=== PATIENT | female | born 1955 | race African-American/Black ===

== ENCOUNTER 2017-03-04 21:11 | Inpatient (IN) | payer OTHER ==
--- NOTE | ~2017-03-04 | HP ---
History And Physical [place] [id number] [facility] [place] [address] NAME: SIERRA KANG : 57 STATUS : ADM IN [facility]#: [id number] AGE: 61 ADM/REG DATE : 03/04/17 MR#: [id number] REPORT SERV DATE: 03/05/17 DICTATED BY: ONESIMO ROSARIO DATE: 03/05/17 REPORT STATUS : Draft TRANSCRIBED BY: MODL DATE: 03/05/17 DATE OF ADMISSION: 03/04/2017 CHIEF COMPLAINT: This 61-year-old female presenting with chest tightness, shortness of breath, orthopnea, extremity edema. HISTORY OF PRESENT ILLNESS: The patient's history was obtained through careful interview with the patient, coupled with review of [facility] medical records. The patient states that for the last 10 days, she has had increasing chest tightness, shortness of breath, and a nonproductive cough. She describes her shortness of breath as both a severe dyspnea on exertion with a prominent wheeze as well as severe nighttime orthopnea and paroxysmal nocturnal dyspnea to the point where she has been sleeping in a recliner for several nights. She has noticed increasing lower extremity edema and abdominal bloating and distention. No abdominal pain. No nausea or vomiting. No lightheadedness. She describes a chest discomfort as a tightness across the middle of her chest, constant 8/10 severity. REVIEW OF SYSTEMS: Otherwise, a 14-point review of systems was obtained and was negative. PAST MEDICAL HISTORY: 1. Asthma, has never smoked. 2. Pneumonia, 2012. 3. Chronic kidney disease, stage III, baseline creatinine of 1.5 to 1.7. 4. Hypertension. 5. Diabetes. 6. Hypothyroidism. 7. Chronically elevated troponin between 0.05 and 0.25, negative catheterization of the heart in 2011 and a negative stress PET scan on 01/25/2017. 8. Systolic congestive heart failure. Most recent echocardiogram by Dr. Gunn showed 24% ejection fraction with diastolic dysfunction on 02/02/2017. 9. Obesity with body mass index of 39. PAST SURGICAL HISTORY: Tubal ligation. ALLERGIES: NO KNOWN DRUG ALLERGIES. SOCIAL HISTORY: No tobacco abuse. No drug abuse. Lives with a 26-year-old grandson and a 13-year-old great granddaughter. Has a total of three grandchildren, one child. She still works as a elementary school art teacher. She became a in 2011. History And Physical [address] [place]. [address] NAME: SIERRA KANG : 57 STATUS : ADM IN PAT#: [id number] AGE: 61 ADM/REG DATE : 03/04/17 MR#: [id number] REPORT SERV DATE: 03/05/17 DICTATED BY: ONESIMO ROSARIO DATE: 03/05/17 REPORT STATUS : Draft TRANSCRIBED BY: HARRY DATE: 03/05/17 FAMILY HISTORY: Diabetes in her mother. Father with stroke. Mother and father with asthma. CURRENT MEDICATIONS: Include albuterol inhaler, Norvasc 5 mg p.o. b.i.d., Coreg 3.125 mg p.o. b.i.d., Lasix 40 mg p.o. b.i.d., hydralazine 50 mg p.o. t.i.d., isosorbide mononitrate 30 mg p.o. b.i.d., potassium 20 mEq p.o. b.i.d., and Altace 2.5 mg p.o. b.i.d. PHYSICAL EXAMINATION: VITAL SIGNS: Temperature 97.2, pulse 93, blood pressure 182/112, respiratory rate 19, O2 saturation 94% on room air. GENERAL: A pleasant, cooperative, female, with evidence of distress secondary to cough, shortness of breath, and chest tightness. HEENT: Pupils equal, round, and reactive to light. No conjunctival pallor. No scleral icterus. Nares are patent. Oropharynx is clear of obstruction. Moist mucous membranes. NECK: Trachea midline. No thyromegaly. LYMPH: No cervical lymphadenopathy. No supraclavicular lymphadenopathy. RESPIRATORY: Prominent wheezes are noted throughout examination with a "tight" exam. But patient also has upper respiratory rhonchi and some wet rales at the base of lungs. No dullness to percussion to suggest effusion by my exam. The patient has a labored respiratory effort. CARDIOVASCULAR: Regular rate and rhythm. No murmurs, rubs, or gallops. The patient does have pitting lower extremity edema to the knees symmetrically. ABDOMEN: Distended by exam, but no tympanic resonance on percussion. Uncomfortable throughout, but no guarding, no rebound, nonfocal, no hepatosplenomegaly. DERMATOLOGICAL: Warm and dry extremities, no pallor, no cyanosis. PSYCHIATRIC: Normal affect. Good mood. Alert and oriented x3. LABORATORY DATA: White blood count 7.7, hemoglobin 13, hematocrit 41, platelets 305. Sodium 146, potassium 4.0, chloride 110, bicarb 28, BUN 27, creatinine 1.70, glucose 105, brain natriuretic peptide 546. Troponin 0.11. Albumin 2.9. INR 1.1. STUDIES: 1. Chest x-ray by my own evaluation shows cardiomegaly, left pleural effusion, pulmonary vascular congestion overall, though it appears stable compared to 10/2016. 2. EKG by my own evaluation shows sinus rhythm, left axis deviation, incomplete left bundle-branch block with left ventricular hypertrophy. ASSESSMENT AND PLAN: 1. Asthma exacerbation. Place on IV Solu-Medrol, duo nebulizers, doxycycline. 2. Systolic congestive heart failure exacerbation with ejection fraction 24% measured in 02/02/2017. Place on IV diuretic, continue ELIEL inhibitor and Coreg. 3. Chronically elevated troponin, yet negative catheterization of the heart in 2011 with a negative stress PET scan, 01/25/2017. 4. Chronic kidney disease, stage III. Monitor closely. History And Physical [address] [address] NAME: SIERRA KANG : 57 STATUS : ADM IN [facility]#: [id number] AGE: 61 ADM/REG DATE : 03/04/17 MR#: [id number] REPORT SERV DATE: 03/05/17 DICTATED BY: ONESIMO ROSARIO DATE: 03/05/17 REPORT STATUS : Draft TRANSCRIBED BY: MODCassia DATE: 03/05/17 KPL/HARRY Onesimo Rosario M.D. / [id number] CC: Pj Gunn MD
--- NOTE | ~2017-03-04 | DS ---
Discharge Summary [facility] [address] [place]. [address] NAME: SIERRA KANG : 57 STATUS : DIS IN PAT#: [id number] AGE: 61 ADM/REG DATE : 03/04/17 MR#: [id number] REPORT SERV DATE: 03/06/17 DICTATED BY: ESTIVEN LEAVITT DATE: 03/05/17 REPORT STATUS : Draft TRANSCRIBED BY: MODL DATE: 03/05/17 ADMISSION DATE: 03/04/2017 DISCHARGE DATE: 03/05/2017 DISCHARGE DIAGNOSES: 1. Asthma exacerbation. 2. Systolic congestive heart failure exacerbation, baseline ejection fraction of 25% measured in 01/2017. 3. Chronically elevated troponin. 4. Stage 3 chronic kidney disease. CONSULTS: None. PROCEDURES: None. HOSPITAL COURSE: This is a 61-year-old lady who was admitted with asthma exacerbation and congestive heart failure exacerbation. For details, please refer to excellent H and P by Dr. Henderson. In summary, by the morning when I saw the patient, the patient had made significant improvement of her symptoms. The patient was on room air not requiring any oxygen. The patient actually felt back at baseline and she was amenable to discharge. I felt that was appropriate given her clinical presentation. The patient is thus being discharged home with a short course of steroids. Of note, the patient complained of dry, hacking cough and upon review of patient's home medications patient was on an ELIEL inhibitor. The ELIEL inhibitor was thus discontinued and the patient was started on a low-dose losartan instead. The patient is now being discharged home with close outpatient followup instructions. DISPOSITION: Home. FOLLOWUP: 1. Please follow up with PCP in the next one to two weeks. 2. Please follow up with sweat band separator in the next one to two weeks. Total of 25 minutes spent in coordinating this patient's discharge today. DONNY/HARRY Estiven Leavitt MD / [id number] CC: Estiven Leavitt MD
[~2017-03-04 21:11] MED LIST: ADVAIR INH; ALBUTEROL5 INH; ALTA2.5 PO; ASA5GR PO; CARDURA1 MG; CARDURA1 MG PO; COREG25 PO; COREG6 PO; DEMA20 PO; FLAG500TAB PO; FLONASE NAS; GLUCPH PO; HYDRALAZINE100 MG; HYDRALAZINE100 MG PO; IMDUR30 PO; ISOSORBIDE; KDUR20 PO; KLOR-CON M2020 MEQ PO; L20 PO; L40 PO; LEVOTHYROXIN25 MCG PO; MAGOX4 PO; MICRO-K10 MEQ PO; NORV10 PO; NORV5; NORV5 PO; P10 PO; POTASSIUM; PREDNISONE; PRILO PO; PRIN10 PO; PROVENTSOL INH; PROVHFA INH; SPIRIVA INH; STERAPRED DS10 MG; T300 PO; UNABLE TO RECALL; VENTOLIN HFA INH; VIBRATAB100 MG PO; ZITH250 PO
[2017-03-04 22:13] LABS: BASOPHILS 0.5 %; BASOPHILS ABSOLUTE 0.04 10/3/uL (0.0-0.16); EOSINOPHILS 10.2 %; EOSINOPHILS ABSOLUTE 0.79 10/3/uL (0.0-0.53); ER CBC TAT 0 Hrs 10 Mins; HEMATOCRIT 40.9 % (36.0-48.0); HEMOGLOBIN 12.9 g/dL (12.0-16.0); IMMATURE GRANULOCYTES 0.3 %; IMMATURE GRANULOCYTES ABSOLUTE 0.02 10/3/uL (0.0-0.11); LYMPHOCYTES 28.7 %; LYMPHOCYTES ABSOLUTE 2.22 10/3/uL (0.67-4.30); MANUAL DIFF NO %; MEAN CORPUS HGB CONC 31.5 g/dL (32.0-36.0); MEAN CORPUSCULAR HEMOGLOB 26.7 pg (26.0-34.0); MEAN CORPUSCULAR VOLUME 84.7 fL (80-100); MEAN PLATELET VOLUME 9.5 fL (9.2-13.0); MONOCYTES 8.3 %; MONOCYTES ABSOLUTE 0.64 10/3/uL (0.21-1.20); NEUTROPHILS ABSOLUTE 4.02 10/3/uL (2.02-8.40); PLATELET COUNT 305 10/3/uL (150-400); RED CELL COUNT 4.83 10/6/uL (4.0-5.6); WHITE BLOOD CELLS 7.7 10/3/uL (4.5-10.5)
[2017-03-04 22:21] LABS: INTERNATIONAL NORMAL RATI 1.1 UNITS (-); PROTIME (NOT ORD) 13.6 SEC (12.0-14.5)
[2017-03-04 22:28] LABS: A/G RATIO 0.8 (0.7-1.9); ALBUMIN 2.9 G/DL (3.5-5.0); ALKALINE PHOSPHATASE 77 U/L (45-117); CALCIUM, SERUM 8.7 MG/DL (8.5-10.4); CHLORIDE, SERUM 110 MMOL/L (96-112); CO2 (CARBON DIOXIDE) 28 MMOL/L (24-34); GFR AFRICAN AMERICAN 37 ML/MIN (>=60); GFR NON AFRICAN AMERICAN 32 ML/MIN (>=60); GLOBULIN 3.7 G/DL (2.5-4.1); SGOT(AST) 11 U/L (5-40); SGPT(ALT) 20 U/L (5-65); SODIUM, SERUM 146 MMOL/L (135-148); TOTAL BILIRUBIN 0.6 MG/DL (0-1.2); TOTAL PROTEIN 6.6 G/DL (6.0-8.5)
[2017-03-04 22:29] LABS: BUN (BLOOD UREA NITROGEN) 27 MG/DL (6-23); GLUCOSE, SERUM 105 MG/DL (60-99); TROPONIN I 0.11 NG/ML (<0.05)
[2017-03-04] MEDS ORDERED: KDUR20 PO (23:13)
[2017-03-04] MEDS ORDERED: IMDUR30 PO (23:13)
[2017-03-04] MEDS ORDERED: L40 PO (23:14)
[2017-03-04] MEDS ORDERED: APRES50 PO (23:15)
[2017-03-04] MEDS ORDERED: ALTA2.5 PO (23:15)
[2017-03-04] MEDS ORDERED: ALBUTEROL0.083 % INH (23:16)
[2017-03-04] MEDS ORDERED: NORV5 PO (23:16)
[2017-03-04] MEDS ORDERED: COREG3 PO (23:16)
[2017-03-04] MEDS ORDERED: VENTOLIN HFA INH (23:17)
[2017-03-05 03:40] LABS: ASCORBIC ACID (UR NOT ORDER) NEG (NEG); BILIRUBIN, URINE NEGATIVE (NEG); KETONE, URINE NEGATIVE (NEG); LEUKOCYTE ESTERASE(NOT OR NEG (NEG); WBC (NOT ORDERED) (RFLEX) < 1 (0-5)
[2017-03-05 05:01] LABS: BASOPHILS 0.2 %; BASOPHILS ABSOLUTE 0.01 10/3/uL (0.0-0.16); EOSINOPHILS 0.3 %; EOSINOPHILS ABSOLUTE 0.02 10/3/uL (0.0-0.53); HEMATOCRIT 42.2 % (36.0-48.0); HEMOGLOBIN 13.5 g/dL (12.0-16.0); IMMATURE GRANULOCYTES 0.5 %; IMMATURE GRANULOCYTES ABSOLUTE 0.03 10/3/uL (0.0-0.11); LYMPHOCYTES 8.7 %; MEAN CORPUSCULAR HEMOGLOB 26.8 pg (26.0-34.0); MEAN CORPUSCULAR VOLUME 83.9 fL (80-100); MEAN PLATELET VOLUME 10.1 fL (9.2-13.0); MONOCYTES 0.9 %; MONOCYTES ABSOLUTE 0.05 10/3/uL (0.21-1.20); NEUTROPHILS 89.4 %; NEUTROPHILS ABSOLUTE 5.11 10/3/uL (2.02-8.40); PLATELET COUNT 320 10/3/uL (150-400); RBC DISTRIBUTION WIDTH 16.8 % (12.0-16.0); RED CELL COUNT 5.03 10/6/uL (4.0-5.6); WHITE BLOOD CELLS 5.7 10/3/uL (4.5-10.5)
[2017-03-05 05:02] LABS: MANUAL DIFF NO %
[2017-03-05 05:07] LABS: INTERNATIONAL NORMAL RATI 1.1 UNITS (-); PROTIME (NOT ORD) 14.5 SEC (12.0-14.5)
[2017-03-05 05:28] LABS: A/G RATIO 0.9 (0.7-1.9); ALKALINE PHOSPHATASE 76 U/L (45-117); BUN (BLOOD UREA NITROGEN) 26 MG/DL (6-23); CALCIUM, SERUM 8.9 MG/DL (8.5-10.4); CHLORIDE, SERUM 108 MMOL/L (96-112); CO2 (CARBON DIOXIDE) 27 MMOL/L (24-34); GFR AFRICAN AMERICAN 37 ML/MIN (>=60); GFR NON AFRICAN AMERICAN 32 ML/MIN (>=60); GLOBULIN 3.5 G/DL (2.5-4.1); POTASSIUM, SERUM 3.8 MMOL/L (3.5-5.3); SGOT(AST) 14 U/L (5-40); SGPT(ALT) 17 U/L (5-65); SODIUM, SERUM 145 MMOL/L (135-148); TOTAL BILIRUBIN 0.3 MG/DL (0-1.2); TOTAL PROTEIN 6.5 G/DL (6.0-8.5)
[2017-03-05 05:33] LABS: GLUCOSE, SERUM 201 MG/DL (60-99); TROPONIN I 0.11 NG/ML (<0.05); ULTRASENSITIVE TSH 0.469 MCIU/ML (0.358-3.740)
[2017-03-05] MEDS ORDERED: COZ25 PO (10:12)
[2017-03-05] MEDS ORDERED: P20 PO (10:13)
[2017-03-05] MEDS ORDERED: ZITHROMAX500 MG PO (10:13)
[2017-03-05] MEDS ORDERED: MUCINEX600 MG PO (10:14)
[2017-03-05] MEDS ORDERED: TESS PO (10:16)
== END 2017-03-05 14:41 | disposition home or self-care (01) | DRG 291 ==
LOC: ER 21:11 → 6NO 23:16
PROVIDERS: Emergency Medicine; Hospitalist; Internal Medicine
DX: I13.0 Hypertensive heart and chronic kidney disease with heart failure and stage 1 through stage 4 chronic kidney disease, or unspecified chronic kidney disease (principal); I50.23 Acute on chronic systolic (congestive) heart failure; E11.22 Type 2 diabetes mellitus with diabetic chronic kidney disease; N18.3 Chronic kidney disease, stage 3 (moderate); J45.901 Unspecified asthma with (acute) exacerbation; E66.01 Morbid (severe) obesity due to excess calories; I44.7 Left bundle-branch block, unspecified; Z87.01 Personal history of pneumonia (recurrent); E03.9 Hypothyroidism, unspecified; Z83.3 Family history of diabetes mellitus; Z82.3 Family history of stroke; Z68.39 Body mass index [BMI] 39.0-39.9, adult
CPT/HCPCS: 71010; 80053; 81001; 82962; 83735; 83880; 84443; 84484; 85025; 85610; 85730; 87449; 93005; 94640; 96374; 96375; 99285; A9270-GY; J0360; J1940; J2920; J2930

== ENCOUNTER 2017-03-17 23:40 | Inpatient (IN) | payer OTHER ==
--- NOTE | ~2017-03-17 | HP ---
History And Physical [address] [place]. [address] NAME: SIERRA KANG : 57 STATUS : ADM IN [facility]#: [id number] AGE: 61 ADM/REG DATE : 03/18/17 MR#: [id number] REPORT SERV DATE: 03/18/17 DICTATED BY: ONESIMO ROSARIO DATE: 03/18/17 REPORT STATUS : Draft TRANSCRIBED BY: MODL DATE: 03/18/17 DATE OF ADMISSION: 03/18/2017 CHIEF COMPLAINT: A 61-year-old female presenting with shortness of breath. HISTORY OF PRESENT ILLNESS: The patient's history was obtained through an interview with the patient, coupled with review of [facility] medical records. The patient states that for about two days she has been having increasing shortness of breath characterized by dyspnea on exertion, but also a prominent orthopnea and paroxysmal nocturnal dyspnea. On the night prior to admission, she could not sleep at all. She describes a prominent wheeze, nonproductive cough, increasing lower extremity edema. She has intermittent lightheadedness. No confusion. She describes chest discomfort in the middle of her chest, a tightness quality, 6/10 severity exacerbated by coughing and breathing. No nausea or vomiting. No fevers or chills. REVIEW OF SYSTEMS: Otherwise, a 14-point review of systems was obtained and was negative. PAST MEDICAL HISTORY: 1. Systolic congestive heart failure. Ejection fraction 24% in 2017, followed by Dr. Gunn. 2. Asthma, never smoked. 3. Diabetes. 4. Chronic kidney disease, stage 3. Baseline creatinine of 1.5 to 1.7. 5. Pneumonia in 2011. 6. Hypothyroidism. 7. Hypertension. 8. Chronically elevated troponin measured between 0.05 and 0.25, negative catheterization of the heart in 2011, and negative stress test in January 2017. 9. Body mass index 39. PAST SURGICAL HISTORY: Tubal ligation. ALLERGIES: NO KNOWN DRUG ALLERGIES. SOCIAL HISTORY: Lives with a 26-year-old grandson and 13-year-old great granddaughter. Has been a since 2011. Has three grandchildren and one child. Still works as a school counsellor. No tobacco abuse. No alcohol abuse. FAMILY HISTORY: Father with stroke. Mother with diabetes. Mother and father both with History And Physical [address] [place]. [address] NAME: SIERRA KANG : 57 STATUS : ADM IN [facility]#: [id number] AGE: 61 ADM/REG DATE : 03/18/17 MR#: [id number] REPORT SERV DATE: 03/18/17 DICTATED BY: ONESIMO ROSARIO DATE: 03/18/17 REPORT STATUS : Draft TRANSCRIBED BY: MODCassia DATE: 03/18/17 asthma. Strong family history of heart disease. CURRENT MEDICATIONS: 1. Norvasc 5 mg p.o. b.i.d. 2. Tessalon Perles. 3. Coreg 3.125 mg p.o. b.i.d. 4. Vitamin D. 5. Dextromethorphan. 6. Lasix 40 mg p.o. b.i.d. 7. Hydralazine 50 mg p.o. q.8 hours. 8. Isosorbide mononitrate 30 mg p.o. daily. 9. Cozaar 25 mg p.o. daily. 10.Potassium 20 mEq p.o. b.i.d. PHYSICAL EXAMINATION: VITAL SIGNS: Temperature 98.6, pulse 100, blood pressure 161/94, respiratory rate 24, and O2 saturation 91% on room air. GENERAL: An ill-appearing female, in evidence of distress from shortness of breath. HEENT: Pupils equal, round, and reactive to light. No conjunctival pallor. No scleral icterus. Nares are patent. Oropharynx is clear of obstruction. Moist mucous membranes. NECK: Trachea midline. No thyromegaly. LYMPH: No cervical lymphadenopathy. No supraclavicular lymphadenopathy. RESPIRATORY: The patient has wet rales at the base of lungs that predominate, also some diminished breath sounds at the right base of lung, what I believe is some focal egophony in that area. The patient has scattered expiratory wheezes, upper respiratory rhonchi. No labored respiratory effort. CARDIOVASCULAR: Tachycardic. Regular rhythm. No murmurs, rubs, or gallops. The patient does have pitting lower extremity edema symmetrically. ABDOMEN: Soft, nontender, and nondistended. Normal bowel sounds auscultated throughout. No hepatosplenomegaly. DERMATOLOGICAL: Warm and dry extremities. No pallor. No cyanosis. PSYCHIATRIC: Normal affect. Good mood. Alert and oriented x3. LABORATORY DATA: Brain natriuretic peptide 675. Troponin 0.14. Liver enzymes within normal limits. White blood cell count 11, hemoglobin 13, hematocrit 41, and platelets 231. Sodium 143, potassium 4.0, chloride 111, bicarb 26, BUN 19, creatinine 1.55, and glucose 116. ABG demonstrates pH 7.40, PaCO2 of 38, a PaO2 of 96, and a bicarb of 23. STUDIES: 1. Chest x-ray per my own evaluation shows pulmonary edema, cardiomegaly, possible History And Physical [address] [address] NAME: SIERRA KANG : 57 STATUS : ADM IN [facility]#: [id number] AGE: 61 ADM/REG DATE : 03/18/17 MR#: [id number] REPORT SERV DATE: 03/18/17 DICTATED BY: ONESIMO ROSARIO DATE: 03/18/17 REPORT STATUS : Draft TRANSCRIBED BY: HARRY DATE: 03/18/17 increased right lower lung disease consistent with infiltrate? 2. EKG by my own evaluation shows sinus rhythm, premature ventricular contractions, right axis deviation. ASSESSMENT AND PLAN: 1. Asthma exacerbation. Never been a smoker. Place on IV Solu-Medrol, Duo nebulizers, IV antibiotics. 2. Systolic congestive heart failure exacerbation. Ejection fraction 24% in January 2017. Place on IV diuretic, ELILE inhibitor, and beta matty. 3. Possible pneumonia. Start empiric IV antibiotics. Check procalcitonin. 4. Chronic kidney disease, stage 3. 5. Chronically elevated troponin. Negative catheterization of the heart in 2011. Negative stress test in January 2017. KPL/MODL Onesimo Rosario M.D. / [id number] CC: Karely Yoo MD
--- NOTE | ~2017-03-17 | DS ---
Discharge Summary [facility] [address] [place]. [address] NAME: SIERRA KANG : 57 STATUS : DIS IN PAT#: [id number] AGE: 61 ADM/REG DATE : 03/18/17 MR#: [id number] REPORT SERV DATE: 03/20/17 DICTATED BY: DELPHINE SALAZAR DATE: 03/19/17 REPORT STATUS : Draft TRANSCRIBED BY: MODL DATE: 03/19/17 ADMISSION DATE: 03/18/2017 DISCHARGE DATE: 03/19/2017 DISCHARGE DIAGNOSES: 1. Acute on chronic heart failure. 2. Asthma exacerbation. 3. Chronic kidney disease, stable. 4. Body mass index of 34.5. HISTORY OF PRESENT ILLNESS: This is a 61-year-old female patient, who does have a condition of heart failure and asthma came to the hospital with short of breath. Please see dictated H and P. HOSPITAL COURSE: She was admitted to the hospital for both condition, heart failure and asthma exacerbation, was treated for both conditions, significantly improved within 24 hours. Symptoms are very stabilized. The patient has been treated with increased diuretics which is Lasix 40 mg every 8 hours IV here. Her home dose is 40 mg twice a day and she states that she is compliant with her medical treatment. She had a good about 2.5 L of output within 24 hours. She remains in stable condition. Did not require any home oxygen. The patient will be discharged to home with continuing home treatment. We are going to finish tapering the prednisone and her Coreg was increased and adding her Singulair and loratadine treatment. DISCHARGE MEDICATIONS: 1. Norvasc 5 mg twice a day. 2. Tessalon as needed. 3. Coreg is increased to 6.25 mg twice a day. 4. Doxycycline 100 mg twice a day for five more days. 5. Lasix 40 mg twice a day. 6. Imdur 30 mg once a day. 7. Cozaar 25 mg once a day. 8. Potassium 20 mEq twice a day. 9. Apresoline 50 mg every 8 hours. 10.Prednisone tapering dose. 11.Singulair 10 mg once a day. 12.Loratadine 10 mg once a day. DISPOSITION: The patient is discharged to home in stable condition. TIME SPENT: More than 30 minutes on patient education. EKL/MODL Discharge Summary [address] [place]. [address] NAME: SIERRA KANG : 57 STATUS : DIS IN PAT#: [id number] AGE: 61 ADM/REG DATE : 03/18/17 MR#: [id number] REPORT SERV DATE: 03/20/17 DICTATED BY: DELPHINE SALAZAR DATE: 03/19/17 REPORT STATUS : Draft TRANSCRIBED BY: HARRY DATE: 03/19/17 Delphine Salazar M.D. / [id number] CC: Delphine Salazar M.D.
[~2017-03-17 23:40] MED LIST changes: +ALBUTEROL0.083 % INH; +APRES50 PO; +COREG3 PO; +COZ25 PO; +MUCINEX600 MG PO; +P20 PO; +TESS PO; +ZITHROMAX500 MG PO
[2017-03-17 23:46] LABS: BASOPHILS 0.2 %; BASOPHILS ABSOLUTE 0.02 10/3/uL (0.0-0.16); EOSINOPHILS 5.1 %; EOSINOPHILS ABSOLUTE 0.56 10/3/uL (0.0-0.53); HEMOGLOBIN 12.9 g/dL (12.0-16.0); IMMATURE GRANULOCYTES 0.4 %; IMMATURE GRANULOCYTES ABSOLUTE 0.04 10/3/uL (0.0-0.11); LYMPHOCYTES 11.3 %; LYMPHOCYTES ABSOLUTE 1.24 10/3/uL (0.67-4.30); MEAN CORPUS HGB CONC 31.5 g/dL (32.0-36.0); MEAN CORPUSCULAR HEMOGLOB 26.6 pg (26.0-34.0); MEAN CORPUSCULAR VOLUME 84.5 fL (80-100); MEAN PLATELET VOLUME 9.7 fL (9.2-13.0); MONOCYTES 7.5 %; MONOCYTES ABSOLUTE 0.82 10/3/uL (0.21-1.20); NEUTROPHILS 75.5 %; NEUTROPHILS ABSOLUTE 8.31 10/3/uL (2.02-8.40); PLATELET COUNT 231 10/3/uL (150-400); RBC DISTRIBUTION WIDTH 17.8 % (12.0-16.0); RED CELL COUNT 4.85 10/6/uL (4.0-5.6)
[2017-03-17 23:49] LABS: ER CBC TAT 0 Hrs 14 Mins; MANUAL DIFF NO %
[2017-03-18 00:02] LABS: A/G RATIO 0.9 (0.7-1.9); ALKALINE PHOSPHATASE 74 U/L (45-117); CALCIUM, SERUM 8.5 MG/DL (8.5-10.4); CHLORIDE, SERUM 111 MMOL/L (96-112); CO2 (CARBON DIOXIDE) 26 MMOL/L (24-34); CREATININE 1.55 MG/DL (0.55-1.02); GFR AFRICAN AMERICAN 42 ML/MIN (>=60); GFR NON AFRICAN AMERICAN 36 ML/MIN (>=60); GLOBULIN 3.3 G/DL (2.5-4.1); SGOT(AST) 24 U/L (5-40); SGPT(ALT) 64 U/L (5-65); SODIUM, SERUM 143 MMOL/L (135-148); TOTAL BILIRUBIN 0.7 MG/DL (0-1.2); TOTAL PROTEIN 6.3 G/DL (6.0-8.5)
[2017-03-18 00:03] LABS: BUN (BLOOD UREA NITROGEN) 19 MG/DL (6-23); GLUCOSE, SERUM 116 MG/DL (60-99)
[2017-03-18 04:08] LABS: ALLENS TEST Pos; BE (BASE EXCESS) -0.7 MEQ/L (0 +/- 2.5); CARBOXYHEMOGLOBIN 1.5 % (0-3); DEVICE NC; HCO3 (ACTUAL BICARBONATE) 23.5 MEQ/L (23-27); HEMOBLOGIN CONTENT 13.6 G/DL (12-16); INSTRUMENT SERIAL # 8087; METHEMOGLOBIN 0.4 % (0-3); O2 CONTENT 18.4 VOL% (18-24); OPERATOR ID 33449; PCO2 (CO2 TENSION) 38 MMHG (35-45); PO2 (O2 TENSION) 96 MMHG (79-93); SAMPLE Arterial; pH 7.41 (7.37-7.43)
[2017-03-18 04:17] LABS: TROPONIN I 0.14 NG/ML (<0.05)
[2017-03-18] MEDS ORDERED: IMDUR30 PO ×2 (05:48→05:58)
[2017-03-18] MEDS ORDERED: NORV5 (05:48)
[2017-03-18] MEDS ORDERED: COREG3 PO (05:49)
[2017-03-18] MEDS ORDERED: L40 PO ×2 (05:50→06:00)
[2017-03-18] MEDS ORDERED: KDUR20 PO (05:50)
[2017-03-18] MEDS ORDERED: COZ25 PO ×2 (05:51→05:58)
[2017-03-18] MEDS ORDERED: APRES50 PO ×2 (05:51→06:00)
[2017-03-18] MEDS ORDERED: VITAMIN D31000 UNIT PO ×2 (05:52→05:57)
[2017-03-18] MEDS ORDERED: TESS PO ×2 (05:53→05:57)
[2017-03-18] MEDS ORDERED: MUCUSRELIEF PO (05:53)
[2017-03-18] MEDS ORDERED: Z-PAK PO ×2 (05:54→05:56)
[2017-03-18] MEDS ORDERED: MUCUSRELIEF (05:57)
[2017-03-18] MEDS ORDERED: NORV5 PO (05:59)
[2017-03-18] MEDS ORDERED: KLOR-CON M2020 MEQ PO (05:59)
[2017-03-18] MEDS ORDERED: COREG6 PO (05:59)
[2017-03-18 10:44] LABS: BASOPHILS 0.2 %; BASOPHILS ABSOLUTE 0.02 10/3/uL (0.0-0.16); EOSINOPHILS 6.3 %; HEMATOCRIT 41.3 % (36.0-48.0); HEMOGLOBIN 13.1 g/dL (12.0-16.0); IMMATURE GRANULOCYTES 0.4 %; IMMATURE GRANULOCYTES ABSOLUTE 0.04 10/3/uL (0.0-0.11); LYMPHOCYTES 19.8 %; LYMPHOCYTES ABSOLUTE 1.88 10/3/uL (0.67-4.30); MANUAL DIFF NO %; MEAN CORPUS HGB CONC 31.7 g/dL (32.0-36.0); MEAN PLATELET VOLUME 9.7 fL (9.2-13.0); MONOCYTES 9.4 %; MONOCYTES ABSOLUTE 0.89 10/3/uL (0.21-1.20); NEUTROPHILS 63.9 %; NEUTROPHILS ABSOLUTE 6.06 10/3/uL (2.02-8.40); PLATELET COUNT 218 10/3/uL (150-400); RBC DISTRIBUTION WIDTH 17.8 % (12.0-16.0); RED CELL COUNT 4.86 10/6/uL (4.0-5.6); WHITE BLOOD CELLS 9.5 10/3/uL (4.5-10.5)
[2017-03-18 10:55] LABS: PARTIAL THROMBO TIME 31.3 SEC (22.5-37.2)
[2017-03-18 10:57] LABS: INTERNATIONAL NORMAL RATI 1.2 UNITS (-); PROTIME (NOT ORD) 15.1 SEC (12.0-14.5)
[2017-03-18 11:11] LABS: A/G RATIO 0.9 (0.7-1.9); ALBUMIN 2.8 G/DL (3.5-5.0); ALKALINE PHOSPHATASE 66 U/L (45-117); BUN (BLOOD UREA NITROGEN) 16 MG/DL (6-23); CALCIUM, SERUM 8.7 MG/DL (8.5-10.4); CHLORIDE, SERUM 110 MMOL/L (96-112); CO2 (CARBON DIOXIDE) 28 MMOL/L (24-34); CREATININE 1.52 MG/DL (0.55-1.02); GFR AFRICAN AMERICAN 43 ML/MIN (>=60); GFR NON AFRICAN AMERICAN 37 ML/MIN (>=60); GLOBULIN 3.2 G/DL (2.5-4.1); GLUCOSE, SERUM 144 MG/DL (60-99); POTASSIUM, SERUM 3.6 MMOL/L (3.5-5.3); SGOT(AST) 17 U/L (5-40); SGPT(ALT) 53 U/L (5-65); SODIUM, SERUM 147 MMOL/L (135-148); TOTAL BILIRUBIN 0.5 MG/DL (0-1.2); TROPONIN I 0.12 NG/ML (<0.05); ULTRASENSITIVE TSH 0.634 MCIU/ML (0.358-3.740)
[2017-03-18 13:45] LABS: PROCALCITONIN <0.05 ng/mL (<0.5)
[2017-03-19 05:22] LABS: BUN (BLOOD UREA NITROGEN) 25 MG/DL (6-23); CALCIUM, SERUM 8.9 MG/DL (8.5-10.4); CHLORIDE, SERUM 109 MMOL/L (96-112); CO2 (CARBON DIOXIDE) 28 MMOL/L (24-34); CREATININE 1.51 MG/DL (0.55-1.02); GFR AFRICAN AMERICAN 43 ML/MIN (>=60); GFR NON AFRICAN AMERICAN 37 ML/MIN (>=60); GLUCOSE, SERUM 121 MG/DL (60-99); POTASSIUM, SERUM 4.1 MMOL/L (3.5-5.3); SODIUM, SERUM 143 MMOL/L (135-148)
[2017-03-19] MEDS ORDERED: STERAPRED DS10 MG PO (14:32)
[2017-03-19] MEDS ORDERED: SINGULAIR1 PO (14:33)
[2017-03-19] MEDS ORDERED: MONODOX100 MG PO (14:33)
[2017-03-19] MEDS ORDERED: CLARIT10 PO (14:34)
== END 2017-03-19 15:55 | disposition home or self-care (01) | DRG 291 ==
LOC: ER 23:40 → 5NO 03-18 05:57
PROVIDERS: Emergency Medicine; Hospitalist; Internal Medicine; Specialist
DX: I13.0 Hypertensive heart and chronic kidney disease with heart failure and stage 1 through stage 4 chronic kidney disease, or unspecified chronic kidney disease (principal); I50.23 Acute on chronic systolic (congestive) heart failure; N18.3 Chronic kidney disease, stage 3 (moderate); J45.901 Unspecified asthma with (acute) exacerbation; E66.9 Obesity, unspecified; Z68.20 Body mass index [BMI] 20.0-20.9, adult
CPT/HCPCS: 36600; 71010; 71020; 80048; 80053; 82805; 83735; 83880; 84145; 84443; 84484; 85025; 85610; 85730; 87040; 93005; 94640; 99285; A9270-GY; J0456; J2920

== ENCOUNTER 2017-03-26 01:37 | Inpatient (IN) | payer OTHER ==
--- NOTE | ~2017-03-26 | DS ---
Discharge Summary [facility] [address] [place]. [address] NAME: SIERRA KANG : 57 STATUS : DIS IN PAT#: [id number] AGE: 61 ADM/REG DATE : 03/26/17 MR#: [id number] REPORT SERV DATE: 03/31/17 DICTATED BY: BONG COVINGTON DATE: 03/30/17 REPORT STATUS : Draft TRANSCRIBED BY: MODL DATE: 03/30/17 ADMISSION DATE: 03/26/2017 DISCHARGE DATE: 03/30/2017 CONDITION ON DISCHARGE: Stable. DISPOSITION: Discharged to home with Home Health. ADVICE ON DISCHARGE: For the patient to follow up with all three of her regular doctors that she sees on a regular basis. 1. Director Of Kids, Dr. Cantu within the next one to two weeks. 2. Follow up with Dr. De Leon, her crimping machine operator for metal within the next two weeks, and also follow up with her air sampler, Dr. Alvarenga, within the next two to three weeks. DIAGNOSES ON DISCHARGE: 1. Acute hypoxic respiratory failure secondary to multi factors. a. Acute exacerbation of chronic obstructive pulmonary disease that has resolved. b. Acute exacerbation of systolic and diastolic heart failure that has resolved. 2. Her chronic issues at this time include chronic systolic and diastolic heart failure secondary to cardiomyopathy with an ejection fraction of 20% to 25%. 3. Chronic obstructive pulmonary disease. 4. Chronic kidney disease, stage 3, for which she follows up with crimping machine operator for metal. BRIEF HOSPITAL COURSE: Ms. aKng is a 61-year-old female who was admitted with signs and symptoms as described in history and physical exam. At this time, she was admitted on 03/26/2017 with acute hypoxic respiratory failure. She was admitted for supportive treatment and also started on antibiotics, diuresis, and was supported with supplemental oxygen. After supportive and symptomatic care, she has significantly improved. The patient's COPD is actually from chronic asthma. The patient has had asthma for years that has led to her COPD, I understand. Strangely, the patient is not on any inhaled corticosteroids at this time. The patient's elevated troponin level that was found to be slightly elevated upon admission was probably from demand-related ischemia per Cardiology and this came down nicely. The patient also has hypertension and diabetes mellitus, which is non-insulin dependent type 2 for which she does not take any medications at this time. Without any medications, her hemoglobin A1c has always been fairly normally controlled and it always been around 6.3, 6.4 at range. The patient states that she usually controls her diet. DISCHARGE MEDICATIONS: After being treated and after her acute exacerbations have resolved, the patient is being sent home and she is being sent home on the following new medications: 1. Prednisone taper. The patient will be taking 30 mg once a day for four days, 20 mg once a day for four days, 10 mg once a day for four days, 5 mg once a day for four Discharge Summary [facility] [address] [place]. [address] NAME: SIERRA KANG : 57 STATUS : DIS IN PAT#: [id number] AGE: 61 ADM/REG DATE : 03/26/17 MR#: [id number] REPORT SERV DATE: 03/31/17 DICTATED BY: BONG COVINGTON DATE: 03/30/17 REPORT STATUS : Draft TRANSCRIBED BY: HARRY DATE: 03/30/17 days, and stop. The patient will also be receiving two more doses of levofloxacin 750 mg p.o. every other day for two more doses only to finish her treatment for the antibiotics for the acute exacerbation of COPD. 2. Regarding her additional inhalers, the patient will also be on Spiriva, which I have given a prescription to her and also inhaled corticosteroids QVAR 80 mcg two puffs twice a day. 3. She will continue the following home medications and these will include amlodipine 5 mg twice a day, Coreg 6.25 mg p.o. twice a day, vitamin D3 supplements, Imdur 30 mg once a day, Claritin 10 mg once a day, Singulair 10 mg once a day, hydralazine 50 mg p.o. three times a day for hypertension and heart failure, and then the patient will also be taking her Lasix 40 mg p.o. b.i.d. The patient will also continue potassium 20 mEq once a day instead of twice a day. The patient will stop her losartan right now given her kidney function test. It is up to Dr. De Leon to resume this when she follows up with him in the next few weeks. The patient will continue her albuterol or Ventolin as prescribed previously. Hence, the patient is being sent home in stable condition and I have the following most relevant and recent labs on this patient. First of all, her CBC on the day of discharge shows a completely normal CBC. Electrolyte profile shows normal electrolytes, BUN is 14, creatinine is 1.7 which is probably her baseline at this time. Brain natriuretic peptide is 242.9, again probably which is her baseline. 4. Her chest x-ray on the day of discharge shows left lung base opacity consistent with atelectasis and/or infiltrate. At this time, I do think that it is more of an atelectasis because the patient does not seem to be toxic or really show any signs of infection at this time even though I am going to finish up her course of antibiotics that she has already been started on. The most recent ABGs that I have on this patient are also on 03/30/2017 and this shows a pH of 7.4, pCO2 of 46, pO2 of 78, O2 sats of 94.8% on room air. Hence, the patient is being sent home in stable condition with above advice to follow up with her above specialists, and I have spent about 40 minutes in coordinating discharge care of this patient including [id number] encounter and summarizing this discharge. To be noted specifically, the patient has not had any echocardiogram during this admission. Her last echocardiogram was on 02/02/2017 and this echocardiogram showed that the patient's ejection fraction from 01/2017 was 24% as mentioned above. I submit this as my discharge summary and I have spent about 40 minutes in coordinating care of this patient today. KELSIE/HARRY Bong Covington M.D. / [id number] Discharge Summary [address] [address] NAME: SIERRA KANG : 57 STATUS : DIS IN PAT#: [id number] AGE: 61 ADM/REG DATE : 03/26/17 MR#: [id number] REPORT SERV DATE: 03/31/17 DICTATED BY: BONG COVINGTON DATE: 05/12/17 REPORT STATUS : Draft TRANSCRIBED BY: MODL DATE: 03/30/17 CC: Bong Covington M.D.
--- NOTE | ~2017-03-26 | HP ---
History And Physical [id number] [place]. [address] NAME: SIERRA KANG : 57 STATUS : ADM IN [facility]#: [id number] AGE: 61 ADM/REG DATE : 03/26/17 MR#: [id number] REPORT SERV DATE: 03/26/17 DICTATED BY: JOHN GONZALEZ DATE: 03/26/17 REPORT STATUS : Draft TRANSCRIBED BY: MODL DATE: 03/26/17 DATE OF ADMISSION: 03/26/2017 POINT OF ENTRY: [facility] Emergency Department. PRIMARY CARE PHYSICIAN: None at this time. PRIMARY SOLUTION SPEC: Dr. Alvarenga. PRIMARY EDUCATION REP: Dr. Gunn. CHIEF COMPLAINT: Shortness of breath, cough, and wheezing. HISTORY OF PRESENT ILLNESS: Ms. Kang is a 61-year-old female with a history of asthma as well as chronic systolic congestive heart failure, ejection fraction of 25%, who presents to the emergency department today with a three-day history of progressive worsening shortness of breath, cough, sputum production as well as wheezing. The patient was admitted to the Hospitalist Service with similar complaints from 03/18/2017 through 03/19/2017. She was treated with IV Lasix, steroids, and inhaled bronchodilators and significantly improved. The patient states that at time of discharge, she was feeling well until about Sunday afternoon when she started to develop worsening shortness of breath with associated wheezing, cough, and occasional sputum production. The patient denies any fevers, night sweats, chills, chest pain, or palpitations. Does states she had some greenish colored sputum today. Initial evaluation in the emergency department notable for an ABG that appears to be well compensated on 2 L by nasal cannula. Chest x-ray is without evidence of pneumonia. EKG is nonischemic. Remainder of her labs were otherwise unremarkable. She was given IV steroids and multiple bronchodilator treatments and still is very short of breath and wheezing. She was admitted to the Hospitalist Service. Of note, troponin level was 0.13 and BNP was 796.5. She was given 1 mg of IV Bumex for this. REVIEW OF SYSTEMS: Comprehensive review of systems otherwise negative, unless listed in history of present illness. PREVIOUS MEDICAL HISTORY: 1. Chronic systolic congestive heart failure, ejection fraction of 25%. 2. Asthma, not on home oxygen. 3. Chronic kidney disease stage 3, baseline creatinine 1.5-1.7. 4. Hypertension. 5. Reports of hyperthyroidism, but not on medications. 6. Bre-hpoprbr-bfletjkts diabetes mellitus type 2. 7. Morbid obesity. 8. Chronic troponin elevation. History And Physical [address] [place]. [address] NAME: SIERRA KANG : 57 STATUS : ADM IN [facility]#: [id number] AGE: 61 ADM/REG DATE : 03/26/17 MR#: [id number] REPORT SERV DATE: 03/26/17 DICTATED BY: JOHN GONZALEZ DATE: 03/26/17 REPORT STATUS : Draft TRANSCRIBED BY: HARRY DATE: 03/26/17 SURGICAL HISTORY: Tubal ligation. ALLERGIES: NO KNOWN DRUG ALLERGIES. HOME MEDICATIONS: This list needs to be confirmed by pharmacy in the mornin. Norvasc 5 mg b.i.d. 2. Tessalon Perles 100 mg t.i.d. 3. Carvedilol 6.25 mg b.i.d. 4. Vitamin D 2000 units daily. 5. Dextromethorphan with guaifenesin. 6. Doxycycline 100 mg b.i.d. 7. Lasix 40 mg b.i.d. 8. Hydralazine 50 mg q.8 hours. 9. Imdur 30 mg daily. 10.Claritin 10 mg daily. 11.Losartan 25 mg daily. 12.Singulair 10 mg daily. 13.Potassium chloride 20 mEq b.i.d. 14.Prednisone Dosepak. SOCIAL HISTORY: She denies any tobacco, alcohol, or illicits. She is a lifelong nonsmoker. Denies any secondhand smoke. FAMILY MEDICAL HISTORY: Mother and father both with coronary artery disease, hypertension, and diabetes. Siblings with coronary artery disease and hypertension. LABORATORIES AND IMAGIN. White count is 9.1, hemoglobin is 14.7, hematocrit is 46.9, and platelet count is 261. INR 1.1. 2. Sodium is 147, potassium 4.2, chloride 111, carbon dioxide 28, BUN 27, creatinine 1.53, glucose is 109, calcium is 8.7, magnesium is 2.2. 3. Troponin is 0.13. 4. BNP is 796.5. 5. ABG; pH is 7.33, pCO2 is 41, pO2 is 77, bicarbonate is 21, saturating 94% on 2 L by nasal cannula. 6. Chest x-ray per my review shows cardiomegaly as well as some mild intravascular volume overload, but no evidence of any acute consolidation, infiltrate, or effusion. 7. EKG per my review shows normal sinus rhythm with no evidence of any acute ischemic infarction, does have some LVH type changes. PHYSICAL EXAMINATION: VITAL SIGNS: Temperature is afebrile, pulse of 98, respirations 18, saturating 95% on 2 L of nasal cannula, and blood pressure is 125/94. GENERAL: The patient is awake, alert, in no acute distress, resting comfortably. She is a well-developed and well-nourished -[place] female. HEENT: Atraumatic and normocephalic. Moist mucous membranes. Pupils equal, round, reactive History And Physical [address] [address] NAME: SIERRA KANG : 57 STATUS : ADM IN [facility]#: [id number] AGE: 61 ADM/REG DATE : 03/26/17 MR#: [id number] REPORT SERV DATE: 03/26/17 DICTATED BY: JOHN GONZALEZ DATE: 03/26/17 REPORT STATUS : Draft TRANSCRIBED BY: HARRY DATE: 03/26/17 to light and accommodation. Extraocular movements intact. No scleral icterus. NECK: No jugular venous distention. No carotid bruits. CARDIAC: Regular rate and rhythm. No murmurs or gallops. Normal S1 and S2. LUNGS: She is on oxygen, is visibly tachypneic and can hear wheezing without use of stethoscope on auscultation. She has diffuse inspiratory wheezes in all lung morin. Decreased breath sounds at bases. Prolonged respiratory phase, but fair to moderate air movement at this time. ABDOMEN: Soft, nontender, nondistended. Good bowel sounds. No rebound, guarding, or rigidity. EXTREMITIES: Warm and well perfused. No cyanosis, clubbing, or edema. SKIN: Warm and dry. PSYCH: Affect appropriate. NEURO: Alert and oriented x3. Cranial nerves II through XII grossly intact. Speech is normal. Gait not assessed. ASSESSMENT: Ms. Kang is a 61-year-old female, back to our facility with shortness of breath, cough, and sputum production and found to have an acute asthma exacerbation as well as systolic congestive heart failure exacerbation. PROBLEM LIST: 1. Acute asthma exacerbation. 2. Jtssi-pv-uusndjh systolic congestive heart failure exacerbation. 3. Hypoxemia. 4. Elevated troponin level. 5. Chronic kidney disease stage 3. 6. Hypertension. 7. Uqt-yzcoyfj-pgssnloui diabetes mellitus type 2. PLAN: 1. Acute asthma exacerbation. The patient has received IV steroids as well as at least two breathing treatments and still is fairly wheezy and somewhat tight. We will treat her initially with IV magnesium sulfate. Continue IV steroids, inhaled bronchodilators as well as inhaled cortical steroids. Given reports of purulent-appearing sputum production, we will also place her on Levaquin. Checking b.i.d. peak flows. 2. Kzxpp-eh-fhfbtlm systolic congestive heart failure exacerbation. She has received 1 mg IV Bumex here in the emergency department with good diuresis. We will place her on fluid and sodium restriction. 3. Elevated troponin level. The patient has history of chronically elevated troponin level. She denies any chest pain. EKG is nonischemic. We will continue to trend out cardiac enzymes. 4. CKD 3. The patient is currently within her recent baseline. 5. Zdy-wsbrieb-ipoqghwxp diabetes mellitus type 2. Place her on level 2 insulin sliding scale given the use of IV steroids. 6. Hypertension. Continue the patient's home medications. 7. DVT prophylaxis. Lovenox subcutaneously. CODE STATUS: The patient wished to be full code. History And Physical [address] [address] NAME: SIERRA KANG : 57 STATUS : ADM IN PAT#: [id number] AGE: 61 ADM/REG DATE : 03/26/17 MR#: [id number] REPORT SERV DATE: 03/26/17 DICTATED BY: JOHN GONZALEZ DATE: 03/26/17 REPORT STATUS : Draft TRANSCRIBED BY: HARRY DATE: 03/26/17 NIKOLAY/HARRY John Gonzalez MD / [id number] CC: Karely Villarreal DO Vimal Ramjee, MD
--- NOTE | ~2017-03-26 | CN ---
Consultation Report [facility] [address] [place]. [address] NAME: SIERRA KANG : 57 STATUS : ADM IN PAT#: [id number] AGE: 61 ADM/REG DATE : 03/26/17 MR#: [id number] REPORT SERV DATE: 03/28/17 DICTATED BY: GUILLE MELENDEZ DATE: 03/28/17 REPORT STATUS : Draft TRANSCRIBED BY: MODL DATE: 03/28/17 CONSULT DATE OF CONSULTATION: Thank you for the opportunity to consult on this patient. HISTORY OF PRESENT ILLNESS: Ms. Kang is an unfortunate 61-year-old woman with a very long history of asthma but no personal history of smoking with frequent exacerbations complicated by congestive heart failure. She is followed by Dr. Alvarenga in our office. She had been in her usual state of health up until this past Sunday when she started having difficulty breathing, orthopnea, and it got worse at night. She was seen in the emergency department and admitted. She was felt to be having an acute exacerbation of her asthma but also of her CHF and indeed had a high BNP on arrival. She has been diuresed over the past couple of days and has felt significantly better since arrival. She has had no persistent purulence of sputum, fevers, chills, or night sweats. REVIEW OF SYSTEMS: Her review of 10 systems was performed and is positive for what was noted above. SOCIAL HISTORY: Remarkable for no personal smoking history and no secondhand smoke exposure. PAST MEDICAL HISTORY: As noted above is significant for asthma which is at least moderate persistent with persistent symptoms and persistent obstruction. She also has congestive heart failure with systolic cardiac dysfunction followed by Cardiology. PHYSICAL EXAMINATION: GENERAL: Today, she is awake and alert. HEENT: Normocephalic and atraumatic. NECK: Supple. No lymphadenopathy. No JVD. CHEST: Symmetric with good expansion bilaterally. LUNGS: Mostly clear though they have a prolonged expiratory phase and she has occasional intermittent expiratory wheezes. CARDIOVASCULAR: She has S1 and S2 which are regular in rate and rhythm. ABDOMEN: Benign. EXTREMITIES: She has no edema. No clubbing. No cyanosis. ASSESSMENT AND PLAN: Respiratory failure. The patient has acute on chronic hypoxemic respiratory failure because of acute exacerbation of CHF and acute exacerbation of asthma. She is already on good therapy for her asthma with systemic steroids, antibiotics, and bronchodilators. She does have a phenotype of allergic asthma with a high baseline IgE, so we have started her on Singulair for the time being but we will discuss with Dr. Alvarenga upon followup of the possibility of initiation of anti-IgE therapy or anti-eosinophil therapy. We would recommend continuing with therapy and consider follow up with Cardiology as well since CHF appears to have been a significant trigger of her acute decompensation. Please do Consultation Report [address] [place]. [address] NAME: SIERRA KANG : 57 STATUS : ADM IN PAT#: [id number] AGE: 61 ADM/REG DATE : 03/26/17 MR#: [id number] REPORT SERV DATE: 03/28/17 DICTATED BY: GUILLE MELENDEZ DATE: 03/28/17 REPORT STATUS : Draft TRANSCRIBED BY: HARRY DATE: 03/28/17 not hesitate to contact me if I could be of any further assistance. SETH/HARRY Guille Melendez M.D. / [id number] CC: Lena Lou M.D.
--- NOTE | ~2017-03-26 | CN ---
Consultation Report [facility] [address] [place]. [address] NAME: SIERRA KANG : 57 STATUS : ADM IN [facility]#: [id number] AGE: 61 ADM/REG DATE : 03/26/17 MR#: [id number] REPORT SERV DATE: 03/28/17 DICTATED BY: MAX GARCIA DATE: 03/28/17 REPORT STATUS : Draft TRANSCRIBED BY: MODL DATE: 03/28/17 NEPHROLOGY CONSULT DATE OF CONSULTATION: 03/28/2017 REQUESTING PHYSICIAN: Lena Lou M.D. REASON FOR CONSULT: CKD with acute kidney injury. HISTORY OF PRESENT ILLNESS: Ms. Kang is a very pleasant, 61-year-old female, who has been seen by Dr. De Leon of [facility] one time in the office in February 2017. At that time, her creatinine was 1.7. Urine protein creatinine was 0.225. Ultrasound in September 2012 showed no hydronephrosis or renal artery stenosis. She has been hospitalized recently at [facility], March 04 to she was here with dyspnea and cough at which time her ELIEL inhibitor was converted to an ARB. She was readmitted on March 18 to March 19 with another episode of dyspnea. During that hospitalization, Nephrology was not consulted. Creatinine was 1.5. She was readmitted on March 26 with another episode of dyspnea. Chest x-ray showed no active infiltrates. Her BNP was 797. She has been diuresed with IV Bumex and today her BNP is 52, but creatinine is up to 1.9. She has no edema on exam. She has been seen by Pulmonary earlier today and was started on Singulair. She does have a history of nonischemic cardiomyopathy with an EF of 25%. PAST MEDICAL HISTORY: 1. CKD. Baseline creatinine 1.[address] De Leon, [facility]. 2. Hypertension on ARB. 3. NIDDM. 4. Asthma. 5. Nonischemic cardiomyopathy. EF 25% with cardiac cath 2011. 6. Hypothyroidism. MEDICATIONS: 1. Amlodipine 5 mg b.i.d. 2. Tessalon. 3. Bumex 1 mg IV q.8 hours. 4. Coreg 6.25 mg b.i.d. 5. Vitamin D. 6. Robitussin. 7. Subcu heparin. 8. Hydralazine 50 mg t.i.d. 9. Imdur 30 mg daily. 10.Claritin. Consultation Report [id number] [place]. [address] NAME: SIERRA KANG : 57 STATUS : ADM IN PAT#: [id number] AGE: 61 ADM/REG DATE : 03/26/17 MR#: [id number] REPORT SERV DATE: 03/28/17 DICTATED BY: MAX GARCIA DATE: 03/28/17 REPORT STATUS : Draft TRANSCRIBED BY: HARRY DATE: 03/28/17 11.Cozaar 25 mg daily. 12.Singulair 10 mg daily. 13.Potassium 20 mEq b.i.d. 14.Prednisone 40 mg daily. 15.Spiriva inhaler. 16.Levaquin 750 mg q.48 hours. FAMILY HISTORY: No ESRD. Both parents had chronic kidney disease. SOCIAL HISTORY: Lifelong nonsmoker. No secondhand smoke. . 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 REVIEW OF SYSTEMS: Please see HPI. No OTC NSAIDs. Collier catheter in place. PHYSICAL EXAMINATION: VITAL SIGNS: Temperature 96.4, pulse 76, respirations 18, blood pressure 121/76, and 99% saturation on 2 liters per nasal cannula O2. GENERAL: She is a very pleasant, female. Awake, alert, oriented, cooperative with the exam. NEUROLOGIC: Grossly nonfocal. She is in no distress, sitting up in her hospital bed. NEUROLOGIC: Grossly nonfocal. HEENT: Sclerae without icterus. Conjunctivae not injected. Oropharynx is clear. Mucous membranes are dry. NECK: No JVD. LUNGS: She has diffuse audible expiratory wheezing. No dyspnea or tachypnea with conversation. HEART: Regular rate and rhythm. No rub. ABDOMEN: Obese, soft, nontender, nondistended. Bowel sounds present throughout without rebound or guarding. EXTREMITIES: Showed no edema. SKIN: Shows no rash. MUSCULOSKELETAL: Shows no active tenosynovitis or gout. : Deferred. She has clear yellow urine in the Collier catheter. LABORATORY DATA: Sodium 146, potassium 4.1, bicarb 35, BUN 44, creatinine 1.9. GFR 33 mL/minute. Calcium 8.8, magnesium 2.4, phosphorus 4, albumin 2.7. White count 56926, hemoglobin 14, and platelets 265,000. BNP 52. UA with trace blood, no protein. ABG 7.37/51/108 on 28% FiO2. ASSESSMENT AND PLAN: Ms. Kang has chronic kidney disease. Baseline creatinine 1.4 to 1.7, now with mild acute kidney injury. EF 25%. Nonischemic cardiomyopathy. Leukocytosis. COPD hypoalbuminemia and microalbuminuria. Likely she has acute kidney injury related to overdiuresis. She has no volume overload on Consultation Report [address] [place]. [address] NAME: SIERRA KANG : 57 STATUS : ADM IN [facility]#: [id number] AGE: 61 ADM/REG DATE : 03/26/17 MR#: [id number] REPORT SERV DATE: 03/28/17 DICTATED BY: MAX GARCIA DATE: 03/28/17 REPORT STATUS : Draft TRANSCRIBED BY: HARRY DATE: 03/28/17 exam. BNP has normalized. Chest x-ray shows no active process. I suspect her symptoms are more likely pulmonary in nature rather than related to volume overload? Hold ARB and diuretics. Continue hydralazine and nitrates for afterload reduction. Supportive care. Watch labs. We will follow closely with you. Follow up with primary retail store manager after discharge. TANA/HARRY Max Garcia M.D. / [id number] CC: Lena Lou M.D.
[2017-03-26 01:18] LABS: BE (BASE EXCESS) -4.4 MEQ/L (0 +/- 2.5); CARBOXYHEMOGLOBIN 1.4 % (0-3); DEVICE NC; HCO3 (ACTUAL BICARBONATE) 21.2 MEQ/L (23-27); HEMOBLOGIN CONTENT 14.2 G/DL (12-16); INSTRUMENT SERIAL # 8087; METHEMOGLOBIN 0.3 % (0-3); O2 CONTENT 18.6 VOL% (18-24); PCO2 (CO2 TENSION) 41 MMHG (35-45); PO2 (O2 TENSION) 77 MMHG (79-93); SAMPLE Arterial; pH 7.33 (7.37-7.43)
[~2017-03-26 01:37] MED LIST changes: +CLARIT10 PO; +MONODOX100 MG PO; +MUCUSRELIEF; +MUCUSRELIEF PO; +SINGULAIR1 PO; +STERAPRED DS10 MG PO; +VITAMIN D31000 UNIT PO; +Z-PAK PO
[2017-03-26 01:51] LABS: BASOPHILS 0.2 %; BASOPHILS ABSOLUTE 0.02 10/3/uL (0.0-0.16); EOSINOPHILS 4.5 %; EOSINOPHILS ABSOLUTE 0.41 10/3/uL (0.0-0.53); ER CBC TAT 0 Hrs 07 Mins; HEMOGLOBIN 14.7 g/dL (12.0-16.0); IMMATURE GRANULOCYTES 0.3 %; IMMATURE GRANULOCYTES ABSOLUTE 0.03 10/3/uL (0.0-0.11); LYMPHOCYTES 11.6 %; LYMPHOCYTES ABSOLUTE 1.05 10/3/uL (0.67-4.30); MEAN CORPUS HGB CONC 31.3 g/dL (32.0-36.0); MEAN CORPUSCULAR VOLUME 86.2 fL (80-100); MEAN PLATELET VOLUME 9.8 fL (9.2-13.0); MONOCYTES 13.7 %; MONOCYTES ABSOLUTE 1.24 10/3/uL (0.21-1.20); NEUTROPHILS 69.7 %; NEUTROPHILS ABSOLUTE 6.33 10/3/uL (2.02-8.40); PLATELET COUNT 261 10/3/uL (150-400); RBC DISTRIBUTION WIDTH 17.7 % (12.0-16.0); RED CELL COUNT 5.44 10/6/uL (4.0-5.6); WHITE BLOOD CELLS 9.1 10/3/uL (4.5-10.5)
[2017-03-26 01:52] LABS: HEMATOCRIT 46.9 % (36.0-48.0); MANUAL DIFF NO %
[2017-03-26 01:58] LABS: INTERNATIONAL NORMAL RATI 1.1 UNITS (-); PARTIAL THROMBO TIME 28.1 SEC (22.5-37.2); PROTIME (NOT ORD) 14.3 SEC (12.0-14.5)
[2017-03-26 02:06] LABS: BUN (BLOOD UREA NITROGEN) 27 MG/DL (6-23); CALCIUM, SERUM 8.7 MG/DL (8.5-10.4); CHLORIDE, SERUM 111 MMOL/L (96-112); CO2 (CARBON DIOXIDE) 28 MMOL/L (24-34); CREATININE 1.53 MG/DL (0.55-1.02); GFR AFRICAN AMERICAN 42 ML/MIN (>=60); GFR NON AFRICAN AMERICAN 37 ML/MIN (>=60); GLUCOSE, SERUM 109 MG/DL (60-99); POTASSIUM, SERUM 4.2 MMOL/L (3.5-5.3); SODIUM, SERUM 147 MMOL/L (135-148)
[2017-03-26 02:07] LABS: CHEST PAIN PROFILE TAT 0 Hrs 23 Mins; TROPONIN I 0.13 NG/ML (<0.05)
[2017-03-26 09:14] LABS: CPK 50 U/L (0-200)
[2017-03-26 09:15] LABS: TROPONIN I 0.09 NG/ML (<0.05)
[2017-03-26] MEDS ORDERED: ALBUTEROL0.083 % INH (11:35)
[2017-03-26] MEDS ORDERED: VENTOLIN HFA INH (11:35)
[2017-03-26 14:59] LABS: CPK 60 U/L (0-200)
[2017-03-26 15:00] LABS: CK-MB 1.9 NG/ML; TROPONIN I 0.07 NG/ML (<0.05)
[2017-03-26 20:28] LABS: PROCALCITONIN 0.12 ng/mL (<0.5)
[2017-03-27 06:18] LABS: BASOPHILS 0.1 %; BASOPHILS ABSOLUTE 0.01 10/3/uL (0.0-0.16); EOSINOPHILS 0 %; HEMATOCRIT 42.4 % (36.0-48.0); HEMOGLOBIN 13.6 g/dL (12.0-16.0); IMMATURE GRANULOCYTES 0.2 %; IMMATURE GRANULOCYTES ABSOLUTE 0.02 10/3/uL (0.0-0.11); LYMPHOCYTES 6.6 %; LYMPHOCYTES ABSOLUTE 0.62 10/3/uL (0.67-4.30); MEAN CORPUS HGB CONC 32.1 g/dL (32.0-36.0); MEAN CORPUSCULAR HEMOGLOB 27.3 pg (26.0-34.0); MEAN PLATELET VOLUME 9.9 fL (9.2-13.0); MONOCYTES 3.4 %; MONOCYTES ABSOLUTE 0.32 10/3/uL (0.21-1.20); NEUTROPHILS 89.7 %; NEUTROPHILS ABSOLUTE 8.38 10/3/uL (2.02-8.40); PLATELET COUNT 273 10/3/uL (150-400); RBC DISTRIBUTION WIDTH 17.8 % (12.0-16.0); RED CELL COUNT 4.99 10/6/uL (4.0-5.6); WHITE BLOOD CELLS 9.4 10/3/uL (4.5-10.5)
[2017-03-27 06:24] LABS: MANUAL DIFF NO %
[2017-03-27 06:30] LABS: ALBUMIN 2.7 G/DL (3.5-5.0); CALCIUM, SERUM 9.2 MG/DL (8.5-10.4); CHLORIDE, SERUM 108 MMOL/L (96-112); CO2 (CARBON DIOXIDE) 29 MMOL/L (24-34); CREATININE 1.53 MG/DL (0.55-1.02); GFR AFRICAN AMERICAN 42 ML/MIN (>=60); GFR NON AFRICAN AMERICAN 37 ML/MIN (>=60); POTASSIUM, SERUM 4.1 MMOL/L (3.5-5.3); SODIUM, SERUM 146 MMOL/L (135-148)
[2017-03-27 06:31] LABS: BUN (BLOOD UREA NITROGEN) 32 MG/DL (6-23); GLUCOSE, SERUM 148 MG/DL (60-99)
[2017-03-27 07:49] LABS: WBC (NOT ORDERED) (RFLEX) 0 (0-5)
[2017-03-27 08:54] LABS: ASCORBIC ACID (UR NOT ORDER) NEG (NEG); BILIRUBIN, URINE NEGATIVE (NEG); KETONE, URINE NEGATIVE (NEG); LEUKOCYTE ESTERASE(NOT OR NEG (NEG)
[2017-03-28 04:53] LABS: ALLENS TEST Pos; BE (BASE EXCESS) 2.5 MEQ/L (0 +/- 2.5); CARBOXYHEMOGLOBIN 0.7 % (0-3); HCO3 (ACTUAL BICARBONATE) 28.9 MEQ/L (23-27); HEMOBLOGIN CONTENT 14.2 G/DL (12-16); INSTRUMENT SERIAL # 8083; METHEMOGLOBIN 0.4 % (0-3); O2 CONTENT 19.5 VOL% (18-24); OPERATOR ID 35785; PCO2 (CO2 TENSION) 51 MMHG (35-45); PO2 (O2 TENSION) 108 MMHG (79-93); SAMPLE Arterial; pH 7.37 (7.37-7.43)
[2017-03-28 06:20] LABS: BASOPHILS 0.1 %; BASOPHILS ABSOLUTE 0.01 10/3/uL (0.0-0.16); EOSINOPHILS 0.7 %; EOSINOPHILS ABSOLUTE 0.08 10/3/uL (0.0-0.53); HEMATOCRIT 44.6 % (36.0-48.0); IMMATURE GRANULOCYTES 0.3 %; IMMATURE GRANULOCYTES ABSOLUTE 0.03 10/3/uL (0.0-0.11); LYMPHOCYTES 18.8 %; LYMPHOCYTES ABSOLUTE 2.21 10/3/uL (0.67-4.30); MEAN CORPUS HGB CONC 31.4 g/dL (32.0-36.0); MEAN CORPUSCULAR VOLUME 85.9 fL (80-100); MEAN PLATELET VOLUME 9.6 fL (9.2-13.0); MONOCYTES 6.6 %; MONOCYTES ABSOLUTE 0.77 10/3/uL (0.21-1.20); NEUTROPHILS 73.5 %; NEUTROPHILS ABSOLUTE 8.64 10/3/uL (2.02-8.40); PLATELET COUNT 265 10/3/uL (150-400); RED CELL COUNT 5.19 10/6/uL (4.0-5.6); WHITE BLOOD CELLS 11.7 10/3/uL (4.5-10.5)
[2017-03-28 06:21] LABS: MANUAL DIFF NO %
[2017-03-28 06:33] LABS: CALCIUM, SERUM 8.8 MG/DL (8.5-10.4); CHLORIDE, SERUM 108 MMOL/L (96-112); CREATININE 1.87 MG/DL (0.55-1.02); GFR AFRICAN AMERICAN 33 ML/MIN (>=60); GFR NON AFRICAN AMERICAN 29 ML/MIN (>=60); GLUCOSE, SERUM 124 MG/DL (60-99); POTASSIUM, SERUM 4.1 MMOL/L (3.5-5.3); SODIUM, SERUM 146 MMOL/L (135-148)
[2017-03-28 06:36] LABS: BUN (BLOOD UREA NITROGEN) 44 MG/DL (6-23); CO2 (CARBON DIOXIDE) 35 MMOL/L (24-34)
[2017-03-29 05:52] LABS: BASOPHILS 0.1 %; BASOPHILS ABSOLUTE 0.01 10/3/uL (0.0-0.16); EOSINOPHILS 0.1 %; EOSINOPHILS ABSOLUTE 0.01 10/3/uL (0.0-0.53); HEMATOCRIT 44.5 % (36.0-48.0); HEMOGLOBIN 14.2 g/dL (12.0-16.0); IMMATURE GRANULOCYTES 0.1 %; IMMATURE GRANULOCYTES ABSOLUTE 0.01 10/3/uL (0.0-0.11); LYMPHOCYTES 20.6 %; LYMPHOCYTES ABSOLUTE 1.69 10/3/uL (0.67-4.30); MEAN CORPUS HGB CONC 31.9 g/dL (32.0-36.0); MEAN CORPUSCULAR HEMOGLOB 27.3 pg (26.0-34.0); MEAN CORPUSCULAR VOLUME 85.6 fL (80-100); MEAN PLATELET VOLUME 9.8 fL (9.2-13.0); MONOCYTES 6.7 %; MONOCYTES ABSOLUTE 0.55 10/3/uL (0.21-1.20); NEUTROPHILS 72.4 %; NEUTROPHILS ABSOLUTE 5.95 10/3/uL (2.02-8.40); PLATELET COUNT 287 10/3/uL (150-400); WHITE BLOOD CELLS 8.2 10/3/uL (4.5-10.5)
[2017-03-29 06:02] LABS: BUN (BLOOD UREA NITROGEN) 44 MG/DL (6-23); CALCIUM, SERUM 9.3 MG/DL (8.5-10.4); CHLORIDE, SERUM 107 MMOL/L (96-112); CREATININE 1.84 MG/DL (0.55-1.02); GFR AFRICAN AMERICAN 34 ML/MIN (>=60); GFR NON AFRICAN AMERICAN 29 ML/MIN (>=60); MANUAL DIFF NO %; POTASSIUM, SERUM 4.6 MMOL/L (3.5-5.3); SODIUM, SERUM 145 MMOL/L (135-148)
[2017-03-29 06:10] LABS: CO2 (CARBON DIOXIDE) 29 MMOL/L (24-34); GLUCOSE, SERUM 89 MG/DL (60-99)
[2017-03-30 04:49] LABS: BE (BASE EXCESS) 4.5 MEQ/L (0 +/- 2.5); CARBOXYHEMOGLOBIN 0.9 % (0-3); HCO3 (ACTUAL BICARBONATE) 29.7 MEQ/L (23-27); HEMOBLOGIN CONTENT 14.9 G/DL (12-16); INSTRUMENT SERIAL # 8083; METHEMOGLOBIN 0.4 % (0-3); O2 CONTENT 19.6 VOL% (18-24); OPERATOR ID 33449; PCO2 (CO2 TENSION) 46 MMHG (35-45); PO2 (O2 TENSION) 78 MMHG (79-93); SAMPLE Arterial; pH 7.43 (7.37-7.43)
[2017-03-30 04:50] LABS: ALLENS TEST Pos
[2017-03-30 05:29] LABS: BASOPHILS 0.1 %; BASOPHILS ABSOLUTE 0.01 10/3/uL (0.0-0.16); EOSINOPHILS 0.1 %; EOSINOPHILS ABSOLUTE 0.01 10/3/uL (0.0-0.53); HEMATOCRIT 43.5 % (36.0-48.0); IMMATURE GRANULOCYTES 0.4 %; IMMATURE GRANULOCYTES ABSOLUTE 0.03 10/3/uL (0.0-0.11); LYMPHOCYTES 20.1 %; LYMPHOCYTES ABSOLUTE 1.46 10/3/uL (0.67-4.30); MEAN CORPUS HGB CONC 32.2 g/dL (32.0-36.0); MEAN CORPUSCULAR HEMOGLOB 26.9 pg (26.0-34.0); MEAN CORPUSCULAR VOLUME 83.5 fL (80-100); MEAN PLATELET VOLUME 9.5 fL (9.2-13.0); MONOCYTES 4.8 %; MONOCYTES ABSOLUTE 0.35 10/3/uL (0.21-1.20); NEUTROPHILS 74.5 %; NEUTROPHILS ABSOLUTE 5.42 10/3/uL (2.02-8.40); PLATELET COUNT 290 10/3/uL (150-400); RBC DISTRIBUTION WIDTH 17.8 % (12.0-16.0); RED CELL COUNT 5.21 10/6/uL (4.0-5.6); WHITE BLOOD CELLS 7.3 10/3/uL (4.5-10.5)
[2017-03-30 05:35] LABS: MANUAL DIFF NO %
[2017-03-30 05:43] LABS: BUN (BLOOD UREA NITROGEN) 41 MG/DL (6-23); CALCIUM, SERUM 8.9 MG/DL (8.5-10.4); CHLORIDE, SERUM 106 MMOL/L (96-112); CO2 (CARBON DIOXIDE) 32 MMOL/L (24-34); CREATININE 1.71 MG/DL (0.55-1.02); GFR AFRICAN AMERICAN 37 ML/MIN (>=60); GFR NON AFRICAN AMERICAN 32 ML/MIN (>=60); GLUCOSE, SERUM 97 MG/DL (60-99); POTASSIUM, SERUM 4.9 MMOL/L (3.5-5.3); SODIUM, SERUM 142 MMOL/L (135-148)
[2017-03-30] MEDS ORDERED: P20 (12:33)
[2017-03-30] MEDS ORDERED: SPIRIVA INH (12:35)
[2017-03-30] MEDS ORDERED: LEVAQUIN750 MG PO (12:36)
[2017-03-30] MEDS ORDERED: QVAR80 MCG INH (12:44)
== END 2017-03-30 17:09 | disposition home health service (06) | DRG 291 ==
LOC: ER 01:37 → 6NO 04:38
PROVIDERS: Emergency Medicine; Internal Medicine
DX: I13.0 Hypertensive heart and chronic kidney disease with heart failure and stage 1 through stage 4 chronic kidney disease, or unspecified chronic kidney disease (principal); I50.23 Acute on chronic systolic (congestive) heart failure; J96.21 Acute and chronic respiratory failure with hypoxia; J44.1 Chronic obstructive pulmonary disease with (acute) exacerbation; N17.9 Acute kidney failure, unspecified; I42.9 Cardiomyopathy, unspecified; E11.22 Type 2 diabetes mellitus with diabetic chronic kidney disease; N18.3 Chronic kidney disease, stage 3 (moderate); I24.8 Other forms of acute ischemic heart disease; J45.41 Moderate persistent asthma with (acute) exacerbation; J45.901 Unspecified asthma with (acute) exacerbation; J98.11 Atelectasis
CPT/HCPCS: 36600; 71010; 80048; 80069; 81001; 82550; 82553; 82805; 82962; 83735; 83880; 84145; 84484; 85025; 85610; 85730; 93005; 94640; 94667; 96374; 96375; 99285; A9270-GY; J1956; J2930; J3475